=== PATIENT | male | born 1950 | race Caucasian/White ===

== ENCOUNTER 2023-03-22 14:38 | Emergency (ER) | payer OTHER ==
--- NOTE | 2023-03-22 15:44 | RAD REPORT ---
EXAM DESCRIPTION: Trudy Single View03/22/2023 2:56 pm CLINICAL HISTORY: COUGH COMPARISON: No comparisons TECHNIQUE: Portable AP view of the chest. FINDINGS: The lungs are clear. No pneumothorax or effusion. The cardiomediastinal contours are unre markable. IMPRESSION: No acute cardiopulmonary process.
[2023-03-22 15:50] LABS: Absolute Lymphocytes (CBC) 1.9 K/uL (0.7-4.9); Hematocrit 46.9 % (39.6-49.0); Lymphocytes % 22.3 % (15.3-44.8); MCV 94.7 fL (80-100); MPV 8.8 fL (7.6-11.3); RBC Red Blood Cell Count 4.95 M/uL (4.33-5.43)
[2023-03-22 15:55] LABS: Protime INR 0.98
[2023-03-22 16:09] LABS: Bilirubin Direct 0.1 mg/dL (0-0.2); Bilirubin Indirect, Calculated 0.4 mg/dL (0.2-0.8); Bilirubin Total 0.5 mg/dL (0.2-1.0); Magnesium 2.1 mg/dL (1.6-2.4); Potassium 4.1 mEq/L (3.5-5.1); Protein, Total 7.6 g/dL (6.4-8.2); Troponin High Sensitivity 16.7 pg/mL (<58.9)
--- NOTE | 2023-03-22 17:18 | ER ---
Nurse's Notes [facility] Name: James Bailey Age: 73 yrs Sex: Male : 1950 Arrival Date: 03/22/2023 Time: 14:38 Bed 18 Private MD: Diagnosis: Essential (primary) hypertension;Bradycardia, unspecified Presentation: 03/22 15:25 Chief complaint: Patient states: High BP at providers office today, was being seen for ph swelling on R neck, after high BP reading was instructed to come to ED, pt reports hx of HTN but has not taken medication for many years. Denies dizziness , headache or blurred vision. Coronavirus screen: Vaccine status: Patient reports being unvaccinated. Ebola Screen: No symptoms or risks identified at this time. Initial Sepsis Screen: Does the patient meet any 2 criteria? No. Patient's initial sepsis screen is negative. Does the patient have a suspected source of infection? No. Patient's initial sepsis screen is negative. Risk Assessment: Do you want to hurt yourself or someone else? Patient reports no desire to harm self or others. Onset of symptoms was March 22, 2023. 15:25 Method Of Arrival: Ambulatory ph 15:25 Acuity: GLENN 2 ph Triage Assessment: 17:20 General: Appears in no apparent distress. comfortable, Behavior is calm, cooperative, nj1 appropriate for age. 17:20 Pain: Denies pain. nj1 Historical: - Allergies: 15:28 No Known Allergies; ph - PMHx: 15:28 Hypertensive disorder; ph - Immunization history:: Adult Immunizations unknown. - Social history:: Smoking status: Patient denies any tobacco usage or history of. Screenin:20 [facility] ED Fall Risk Assessment (Adult) History of falling in the last 3 months, nj1 including since admission No falls in past 3 months (0 pts) Confusion or Disorientation No (0 pts) Intoxicated or Sedated No (0 pts) Impaired Gait No (0 pts) Mobility Assist Device Used No (0 pt) Altered Elimination No (0 pt) Score/Fall Risk Level 0 - 2 = Low Risk Oriented to surroundings, Maintained a safe environment, Hourly rounding (assess needs \T\ fall precautionary measures) done. 17:20 Abuse screen: Denies threats or abuse. Denies injuries from another. Nutritional nj1 screening: No deficits noted. Tuberculosis screening: No symptoms or risk factors identified. Assessment: 16:48 Reassessment: Patient appears in no apparent distress at this time. Patient and/or ss family updated on plan of care and expected duration. Pain level reassessed. Patient is alert, oriented x 3, equal unlabored respirations, skin warm/dry/pink. 18:30 Reassessment: Patient appears in no apparent distress at this time. Patient and/or nj1 family updated on plan of care and expected duration. Pain level reassessed. Patient is alert, oriented x 3, equal unlabored respirations, skin warm/dry/pink. Vital Signs: 15:25 BP 196 / 102; Pulse 54; Resp 18; Temp 98.2; Pulse Ox 100% on R/A; Weight 104.33 kg; ph Height 5 ft. 8 in. ; 15:51 BP 202 / 96; Pulse 56; Resp 17; Temp 97.6; Pulse Ox 98% on R/A; rs5 16:45 BP 191 / 90; Pulse 49; Resp 18; Pulse Ox 95% on R/A; ss 17:57 BP 183 / 74; Pulse 55; Resp 13; Pulse Ox 96% on R/A; ss 18:30 BP 187 / 86; Pulse 55; Resp 18; Pulse Ox 95% ; nj1 15:25 Body Mass Index 34.97 (104.33 kg, 172.72 cm) ph ED Course: 14:40 Patient arrived in ED. kj1 14:46 Anibal Adams MD is Attending Physician. [facility] 14:58 XRAY Chest (1 view) In Process Unspecified. EDMS 15:28 Triage completed. ph 15:28 Arm band placed on Patient placed in an exam room, Patient notified of wait time. ph 15:45 Inserted saline lock: 20 gauge in left antecubital area, using aseptic technique. Blood rs5 collected. 15:46 Basic Metabolic Panel Sent. rs5 15:46 CBC with Diff Sent. rs5 15:46 LFT's Sent. rs5 15:46 Magnesium Sent. rs5 15:46 NT PRO-BNP Sent. rs5 15:46 PT-INR Sent. rs5 15:46 Troponin HS Sent. rs5 16:03 Roxana Raza, SHANE is Primary Nurse. 17:17 Darrell Garcia MD is Referral Physician. allyson 17:20 Patient has correct armband on for positive identification. Bed in low position. Call nj1 light in reach. 18:30 No provider procedures requiring assistance completed. nj1 18:30 IV discontinued, intact, bleeding controlled. nj1 Administered Medications: 17:17 Drug: Norvasc PO 10 mg Route: PO; ss 17:58 Follow up: Response: No adverse reaction ss Medication: 18:40 VIS not applicable for this client. nj1 Outcome: 17:17 Discharge ordered by . [facility] 18:40 Discharged to home ambulatory. nj1 18:40 Condition: stable 18:40 Discharge instructions given to patient, Instructed on discharge instructions, follow up and referral plans. medication usage, Demonstrated understanding of instructions, follow-up care, medications, Prescriptions given X 1. 18:58 Patient left the ED. nj1 Signatures: Dispatcher [employer] EDMS Anibal Adams MD MD cha Blanchard, Shelby, RN RN Basilia Mendez RN RN Adams, Shelia kj1 Wes Roe rs5 Carolin Montes RN RN nj1
--- NOTE | 2023-03-22 17:18 | EDPHYS ---
Physician Documentation [facility] Name: James Bailey Age: 73 yrs Sex: Male : 1950 Arrival Date: 03/22/2023 Time: 14:38 Bed 18 Private MD: ED Physician Anibal Adams HPI: 03/22 17:12 This 73 yrs old Male presents to ER via Ambulatory with complaints of High allyson Blood Pressure. 17:12 The patient has elevated blood pressure and discovered this at home, with a home allyson device. Onset: The symptoms/episode began/occurred 2 day(s) ago. Modifying factors: The symptoms are aggravated by activity, The symptoms are alleviated by remaining still. Associated signs and symptoms: The patient has no apparent associated signs or symptoms. Severity of symptoms: At its worst the blood pressure was moderate, in the emergency department the blood pressure is unchanged. The patient has experienced similar episodes in the past, multiple times. Historical: - Allergies: 15:28 No Known Allergies; ph - PMHx: 15:28 Hypertensive disorder; ph - Immunization history:: Adult Immunizations unknown. - Social history:: Smoking status: Patient denies any tobacco usage or history of. ROS: 17:14 Constitutional: Negative for fever, chills, and weight loss, Eyes: Negative for injury, allyson pain, redness, and discharge, ENT: Negative for injury, pain, and discharge, Neck: Negative for injury, pain, and swelling, Cardiovascular: Negative for chest pain, palpitations, and edema, Respiratory: Negative for shortness of breath, cough, wheezing, and pleuritic chest pain, Abdomen/GI: Negative for abdominal pain, nausea, vomiting, diarrhea, and constipation, Back: Negative for injury and pain, : Negative for injury, bleeding, discharge, and swelling, MS/Extremity: Negative for injury and deformity, Skin: Negative for injury, rash, and discoloration, Neuro: Negative for headache, weakness, numbness, tingling, and seizure, Psych: Negative for depression, anxiety, suicide ideation, homicidal ideation, and hallucinations, Allergy/Immunology: Negative for hives, rash, and allergies, Endocrine: Negative for neck swelling, polydipsia, polyuria, polyphagia, and marked weight changes, Hematologic/Lymphatic: Negative for swollen nodes, abnormal bleeding, and unusual bruising. Exam: 17:14 Constitutional: This is a well developed, well nourished patient who is awake, alert, allyson and in no acute distress. Head/Face: Normocephalic, atraumatic. Eyes: Pupils equal round and reactive to light, extra-ocular motions intact. Lids and lashes normal. Conjunctiva and sclera are non-icteric and not injected. Cornea within normal limits. Periorbital areas with no swelling, redness, or edema. ENT: Nares patent. No nasal discharge, no septal abnormalities noted. Tympanic membranes are normal and external auditory canals are clear. Oropharynx with no redness, swelling, or masses, exudates, or evidence of obstruction, uvula midline. Mucous membranes moist. Neck: Trachea midline, no thyromegaly or masses palpated, and no cervical lymphadenopathy. Supple, full range of motion without nuchal rigidity, or vertebral point tenderness. No Meningismus. Chest/axilla: Normal chest wall appearance and motion. Nontender with no deformity. No lesions are appreciated. Cardiovascular: Regular rate and rhythm with a normal S1 and S2. No gallops, murmurs, or rubs. Normal PMI, no JVD. No pulse deficits. Respiratory: Lungs have equal breath sounds bilaterally, clear to auscultation and percussion. No rales, rhonchi or wheezes noted. No increased work of breathing, no retractions or nasal flaring. Abdomen/GI: Soft, non-tender, with normal bowel sounds. No distension or tympany. No guarding or rebound. No evidence of tenderness throughout. Back: No spinal tenderness. No costovertebral tenderness. Full range of motion. Male : Normal genitalia with no discharge or lesions. Skin: Warm, dry with normal turgor. Normal color with no rashes, no lesions, and no evidence of cellulitis. MS/ Extremity: Pulses equal, no cyanosis. Neurovascular intact. Full, normal range of motion. Neuro: Awake and alert, GCS 15, oriented to person, place, time, and situation. Cranial nerves II-XII grossly intact. Motor strength 5/5 in all extremities. Sensory grossly intact. Cerebellar exam normal. Normal gait. Psych: Awake, alert, with orientation to person, place and time. Behavior, mood, and affect are within normal limits. 17:14 ECG was reviewed by the Attending Physician. 17:14 Musculoskeletal/extremity: DVT Exam: No signs of deep vein thrombosis. no pain, no swelling, no tenderness, negative Homans' sign noted on exam, no appreciated bluish discoloration, no erythema, no increased warmth. Vital Signs: 15:25 BP 196 / 102; Pulse 54; Resp 18; Temp 98.2; Pulse Ox 100% on R/A; Weight 104.33 kg; ph Height 5 ft. 8 in. ; 15:51 BP 202 / 96; Pulse 56; Resp 17; Temp 97.6; Pulse Ox 98% on R/A; rs5 16:45 BP 191 / 90; Pulse 49; Resp 18; Pulse Ox 95% on R/A; ss 17:57 BP 183 / 74; Pulse 55; Resp 13; Pulse Ox 96% on R/A; ss 18:30 BP 187 / 86; Pulse 55; Resp 18; Pulse Ox 95% ; nj1 15:25 Body Mass Index 34.97 (104.33 kg, 172.72 cm) ph MDM: 14:46 Patient medically screened. [facility] 17:16 Differential diagnosis: hypertensive crisis, Malignant HTN. Data reviewed: vital signs, [facility] nurses notes, lab test result(s), EKG, radiologic studies, plain films. Consideration of Admission/Observation Escalation of care including admission/observation considered. I considered the following discharge prescriptions or medication management in the emergency department Medications were administered in the Emergency Department. See MAR. Independent interpretation of the following test(s) in the Emergency Department EKG: See my EKG interpretation above. Test considered but Not performed: CT: no ct chest. Care significantly affected by the following chronic conditions: Hypertension. 03/22 14:47 Order name: Basic Metabolic Panel; Complete Time: 17: [facility] 03/22 14:47 Order name: CBC with Diff; Complete Time: 17: [facility] 03/22 14:47 Order name: LFT's; Complete Time: 17: [facility] 03/22 14:47 Order name: Magnesium; Complete Time: 17: [facility] 03/22 14:47 Order name: NT PRO-BNP; Complete Time: 17: [facility] 03/22 14:47 Order name: PT-INR; Complete Time: 17: [facility] 03/22 14:47 Order name: Troponin HS; Complete Time: 17: [facility] 03/22 14:47 Order name: XRAY Chest (1 view); Complete Time: 17:05 [facility] 03/22 14:47 Order name: EKG; Complete Time: 14:48 [facility] 03/22 14:47 Order name: Cardiac monitoring; Complete Time: 16:04 [facility] 03/22 14:47 Order name: EKG - Nurse/Tech; Complete Time: 16:03 [facility] 03/22 14:47 Order name: IV Saline Lock; Complete Time: 15:46 [facility] 03/22 14:47 Order name: Labs collected and sent; Complete Time: 15:46 [facility] 03/22 14:47 Order name: O2 Per Protocol; Complete Time: 16:04 [facility] 03/22 14:47 Order name: O2 Sat Monitoring; Complete Time: 16:04 [facility] EC:14 Rate is 50 beats/min. Rhythm is regular. QRS [place] is Normal. [place] interval is normal. QRS allyson interval is normal. QT interval is normal. No Q waves. T waves are Normal. No ST changes noted. Clinical impression: Sinus bradycardia and No evidence of ischemia. Interpreted by me. Reviewed by me. Administered Medications: 17:17 Drug: Norvasc PO 10 mg Route: PO; ss 17:58 Follow up: Response: No adverse reaction ss Disposition Summary: 03/22/23 17:17 Discharge Ordered Location: Home allyson Problem: new allyson Symptoms: have improved allyson Condition: Stable allyson Diagnosis - Essential (primary) hypertension allyson - Bradycardia, unspecified allyson Followup: allyson - With: Private Physician - When: 2 - 3 days - Reason: Recheck today's complaints, Continuance of care, Re-evaluation by your physician Followup: allyson - With: Darrell Garcia MD - When: - Reason: Recheck today's complaints, Re-evaluation by your physician Discharge Instructions: - Discharge Summary Sheet allyson - Bradycardia, Adult allyson - Hypertension, Adult allyson - Hypertension, Adult, [id number] allyson - Aspirin and Your Heart allyson - Managing Your Hypertension allyson Forms: - Medication Reconciliation Form allyson - Thank You Letter allyson - Antibiotic Education allyson - Prescription Opioid Use allyson Prescriptions: - Lotrel 5-10 mg Oral capsule - take 1 capsule by ORAL route once; 30 capsule; Refills: 0, Product Selection allyson Permitted Signatures: Dispatcher [employer] Anibal Prakash MD MD cha Blanchard, Shelby, RN RN ss Mendez, Basilia, RN RN ph
[2023-03-22] MEDS ORDERED: AMLODIPINE 10 MG TAB ONE (17:25)
[2023-03-22 19:14] VITALS: TEMP 97.6
[2023-03-22 19:20] VITALS: BP 187/86; O2SAT 95
--- NOTE | 2023-03-23 17:42 | EKG ---
Test Date: 2023-03-22 Test Time: 15:59:57 Dietist: HIPOLITO MEASUREMENT RESULTS: Intervals: Rate: 50 MD: 134 QRSD: 88 QT: 434 QTc: 395 [place]: P: 39 MD: 134 QRS: 43 T: 101 INTERPRETIVE STATEMENTS: Sinus bradycardia Nonspecific T wave abnormality Abnormal ECG Compared to ECG 04/07/2016 15:45:47 T-wave abnormality now present Sinus rhythm no longer present Electronically Signed On 03-23-23 17:39:35 CDT by Darrell Garcia
== END 2023-03-22 18:58 | disposition home or self-care (01) ==
LOC: ER 14:38
DX: I10 Essential (primary) hypertension (principal); R00.1 Bradycardia, unspecified
CPT/HCPCS: 36415; 71045; 80048; 80076; 83735; 83880; 84484; 85025; 85610; 93005

== ENCOUNTER 2024-01-22 13:54 | Emergency (ER) | payer OTHER ==
[2024-01-22 14:56] LABS: Absolute Basophils 0.1 K/uL (0-0.5); Absolute Eosinophils 0.1 K/uL (0-0.5); Absolute Lymphocytes (CBC) 1.4 K/uL (0.7-4.9); Absolute Monocytes 0.7 K/uL (0.1-1.3); Absolute Neutrophil 6.2 K/uL (1.8-8.0); Basophils % 0.7 % (0-1.3); Eosinophils % 0.9 % (0-4.4); Hematocrit 42.1 % (39.6-49.0); Hemoglobin 13.9 g/dL (13.6-17.9); Lymphocytes % 16.2 % (15.3-44.8); MCH 31.6 pg (27.0-35.0); MCHC 32.9 g/dL (32.0-36.0); MCV 95.9 fL (80-100); MPV 9.1 fL (7.6-11.3); Monocytes % 8.4 % (3.3-12.3); Neutrophils % 73.8 % (41.7-73.7); Platelets 170 thou/uL (152-406); RBC Red Blood Cell Count 4.39 M/uL (4.33-5.43); Red Cell Distribution Width 12.7 % (12.1-15.2)
[2024-01-22 15:03] LABS: PT Prothrombin Time 11.6 SECONDS (9.5-12.5); PTT, Activated Partial Thromb 37.1 SECONDS (24.3-36.9); Protime INR 1.06
[2024-01-22 15:18] LABS: ALT/SGPT 24 U/L (16-61); AST/SGOT 21 U/L (15-37); Albumin/Globulin Ratio 1.1 (1.1-1.8); Alkaline Phosphatase 90 U/L (45-117); Anion Gap 9.7 mEq/L (5.0-15.0); BUN Blood Urea Nitrogen 20 mg/dL (7-18); Bicarbonate 27 mEq/L (21-32); Bilirubin Direct 0.2 mg/dL (0-0.2); Bilirubin Indirect, Calculated 0.5 mg/dL (0.2-0.8); Bilirubin Total 0.7 mg/dL (0.2-1.0); Globulin 3.8 g/dL (2.3-3.5); Glomerular Filtration Rate 48 ml/min (=/>90); Glucose Level 97 mg/dL (74-106); Potassium 3.7 mEq/L (3.5-5.1); Protein, Total 7.8 g/dL (6.4-8.2); Sodium Level 136 mEq/L (136-145)
[2024-01-22 15:22] LABS: Specific Gravity 1.012 (1.005-1.030); Urine Bilirubin NEGATIVE (Negative); Urine Blood Negative (Negative); Urine Clarity Clear (Clear); Urine Color Light-Yellow (Yellow); Urine Glucose NEGATIVE (Negative); Urine Ketones NEGATIVE (Negative); Urine Microscopic Reflex YN NO UMIC; Urine Nitrite NEGATIVE (Negative); Urine Protein NEGATIVE (Negative); Urine Urobilinogen Normal (Normal)
[2024-01-22 15:32] LABS: Barbiturates NEGATIVE (NEGATIVE); Benzodiazepines NEGATIVE (NEGATIVE); Cocaine NEGATIVE (NEGATIVE); METHAMPHETAM NEGATIVE (NEGATIVE); Methadone NEGATIVE (NEGATIVE); Opiates NEGATIVE (NEGATIVE); Phencyclidine NEGATIVE (NEGATIVE); THC Cannibis POSITIVE (NEGATIVE)
--- NOTE | 2024-01-22 18:40 | EDPHYS ---
Physician Documentation [facility] Name: James Bailey Age: 74 yrs Sex: Male : 1950 Arrival Date: 01/22/2024 Time: 13:54 Bed 17 Private MD: ED Physician Placido Long HPI: 01/21 15:51 This 74 yrs old Male presents to ER via Ambulatory with complaints of Sent By marly ARAUJO Suicidal Ideation. 15:51 The patient presents to the emergency department with depression, suicide ideation, but rn the patient has no formulated plan. Onset: The symptoms/episode began/occurred at an unknown time. Severity of symptoms: At their worst the symptoms were mild in the emergency department the symptoms are unchanged. The patient has not experienced similar symptoms in the past. The patient has been recently seen by a physician:. Patient reports longstanding depression, states has had suicidal thoughts in the past, has not really changed recently, but denies plan or true intent to hurt himself. States he is [employer] and does not want to go to [facility]. Patient saw Dr. Garcia today and told him these thoughts, who sent him here. Patient states these thoughts have been longstanding but has never acted on them and states he never will. Patient states [place] a gun [place] ". Patient believes he needs may be depression medication or psychiatric appointment but does not feel like he will go home and hurt himself today.. Historical: - Allergies: 14:18 No Known Allergies; rs5 - PMHx: 14:18 Hypertensive disorder; rs5 - PSHx: 14:18 None; rs5 - Immunization history:: Adult Immunizations up to date. - Infectious Disease History:: Denies. - Social history:: Smoking status: Patient denies any tobacco usage or history of. - Family history:: not pertinent. - Hospitalizations: : No recent hospitalization is reported. ROS: 15:51 Constitutional: Negative for fever, chills, and weight loss, Cardiovascular: Negative rn for chest pain, palpitations, and edema, Respiratory: Negative for shortness of breath, cough, wheezing, and pleuritic chest pain, Abdomen/GI: Negative for abdominal pain, nausea, vomiting, diarrhea, and constipation, MS/Extremity: Negative for injury and deformity, Skin: Negative for injury, rash, and discoloration, Neuro: Negative for headache, weakness, numbness, tingling, and seizure, Exam: 15:19 ECG was reviewed by the Attending Physician. rn 15:51 Constitutional: This is a well developed, well nourished patient who is awake, alert, rn and in no acute distress. Cardiovascular: Regular rate and rhythm. No pulse deficits. Respiratory: No increased work of breathing, no retractions or nasal flaring. Neuro: Awake and alert, GCS 15, oriented to person, place, time, and situation Psych: Awake, alert, pleasant conversation, denies plan for suicide. Vital Signs: 13:54 BP 147 / 93; Pulse 78; Resp 18; Pulse Ox 99% on R/A; rs5 18:53 BP 141 / 90; Pulse 72; Resp 18; Pulse Ox 99% on R/A; rs5 MDM: 14:03 Patient medically screened. rn 18:38 Differential diagnosis: depression. Data reviewed: vital signs, nurses notes, lab test rn result(s), EKG, and as a result, I will discharge patient. Counseling: I had a detailed discussion with the patient and/or guardian regarding the historical points, exam findings, and any diagnostic results supporting the discharge/admit diagnosis, lab results, the need for outpatient follow up, to return to the emergency department if symptoms worsen or persist or if there are any questions or concerns that arise at home. ED course: Patient evaluated by [facility] mental Health professional, they state ok to discharge, they believe that outpatient treatment is ok for him. Patient without plan, and does not want to hurt himself, states needs therapy and/or medication. Patient comfortable with this plan. Asked him to return if anything worsens. . 01/21 14:03 Order name: Acetaminophen; Complete Time: 15:39 rn 01/21 14:03 Order name: Basic Metabolic Panel; Complete Time: 15:39 rn 01/21 14:03 Order name: CBC with Diff; Complete Time: 15:39 rn 01/21 14:03 Order name: ETOH Level; Complete Time: 15:39 rn 01/21 14:03 Order name: Hepatic Function; Complete Time: 15:39 rn 01/21 14:03 Order name: PT-INR; Complete Time: 15:39 rn 01/21 14:03 Order name: Ptt, Activated; Complete Time: 15:39 rn 01/21 14:03 Order name: Salicylate; Complete Time: 15:39 rn 01/21 14:03 Order name: Urinalysis w/ reflexes; Complete Time: 15:39 rn 01/21 14:03 Order name: Urine Drug Screen; Complete Time: 15:39 rn 01/21 14:03 Order name: EKG - Nurse/Tech; Complete Time: 15:11 rn 01/21 14:03 Order name: IV Saline Lock; Complete Time: 15:11 rn 01/21 14:03 Order name: Labs collected and sent; Complete Time: 15:11 rn 01/21 14:03 Order name: Suicide Precautions; Complete Time: 15:11 rn 01/21 14:03 Order name: Suicide Screening ([place]); Complete Time: 15:11 rn EC:19 Rate is 50 beats/min. Rhythm is regular. QRS [place] is Normal. [place] interval is normal. QRS rn interval is normal. QT interval is normal. No Q waves. T waves are Normal. No ST changes noted. Clinical impression: Sinus bradycardia. Interpreted by me. Reviewed by me. Administered Medications: No medications were administered Disposition Summary: 01/22/24 18:40 Discharge Ordered Notes: Location: Home rn Problem: chronic rn Symptoms: have improved rn Condition: Stable rn Diagnosis - Suicidal ideations rn Followup: rn - With: Private Physician - When: As needed - Reason: Recheck today's complaints, Re-evaluation by your physician Discharge Instructions: - Discharge Summary Sheet rn - Suicidal Feelings: How to Help Yourself rn - Stress, Adult rn - Managing Depression, Adult rn Forms: - Medication Reconciliation Form rn - Antibiotic furniture finisher helper - Prescription Opioid Use rn - Patient Portal Instructions rn - Leadership Thank You Letter rn Signatures: Dispatcher [employer] Placido Rubio MD MD rn Sotelo, Ricky RN RN rs5 Corrections: (The following items were deleted from the chart) 15:58 15:51 Constitutional: This is a well developed, well nourished patient who is awake, rn alert, and in no acute distress. Cardiovascular: Regular rate and rhythm. No pulse deficits. Respiratory: No increased work of breathing, no retractions or nasal flaring. Neuro: Awake and alert, GCS 15, oriented to person, place, time, and situation rn
--- NOTE | 2024-01-22 18:40 | ER ---
Nurse's Notes [facility] Name: James Bailey Age: 74 yrs Sex: Male : 1950 Arrival Date: 01/22/2024 Time: 13:54 Bed 17 Private MD: Diagnosis: Suicidal ideations Presentation: 01/21 13:54 Acuity: GLENN 2 rs5 13:54 Method Of Arrival: Ambulatory rs5 13:54 Chief complaint: Patient states: "I've been having financial difficulties for the past rs5 few months and lately I've started feeling a bit suicidal.". Coronavirus screen: At this time, the client does not indicate any symptoms associated with coronavirus-19. Ebola Screen: No symptoms or risks identified at this time. Initial Sepsis Screen: Does the patient meet any 2 criteria? No. Patient's initial sepsis screen is negative. Does the patient have a suspected source of infection? No. Patient's initial sepsis screen is negative. Risk Assessment: Do you want to hurt yourself or someone else? Patient reports desire/thoughts of hurting themselves or someone else. Provider notified. Onset of symptoms was January 22, 2024. Historical: - Allergies: 14:18 No Known Allergies; rs5 - PMHx: 14:18 Hypertensive disorder; rs5 - PSHx: 14:18 None; rs5 - Immunization history:: Adult Immunizations up to date. - Infectious Disease History:: Denies. - Social history:: Smoking status: Patient denies any tobacco usage or history of. - Family history:: not pertinent. - Hospitalizations: : No recent hospitalization is reported. Screenin:25 [facility] ED Fall Risk Assessment (Adult) History of falling in the last 3 months, ph including since admission No falls in past 3 months (0 pts) Confusion or Disorientation No (0 pts) Intoxicated or Sedated No (0 pts) Impaired Gait No (0 pts) Mobility Assist Device Used No (0 pt) Altered Elimination No (0 pt) Score/Fall Risk Level 0 - 2 = Low Risk Oriented to surroundings, Maintained a safe environment, Hourly rounding (assess needs \\T\\ fall precautionary measures) done. Abuse screen: Denies threats or abuse. Denies injuries from another. Nutritional screening: No deficits noted. Tuberculosis screening: No symptoms or risk factors identified. Assessment: 14:00 General: Appears in no apparent distress. comfortable, well groomed, Behavior is calm, ph cooperative, appropriate for age. Pain: Denies pain. Neuro: Level of Consciousness is awake, alert, obeys commands, Oriented to person, place, time, situation. Cardiovascular: Capillary refill < 3 seconds in bilateral fingers Patient's skin is warm and dry. Respiratory: Airway is patent Respiratory effort is even, unlabored. Derm: Skin is pink, warm \\T\\ dry. 15:05 Reassessment: Patient and/or family updated on plan of care and expected duration. Pain rs5 level reassessed. Patient is alert, oriented x 3, equal unlabored respirations, skin warm/dry/pink. Patient states feeling better. Patient states symptoms have improved. 16:11 Reassessment: No changes from previously documented assessment. rs5 17:09 Reassessment: [facility] at bedside. rs5 18:20 Reassessment: Patient and/or family updated on plan of care and expected duration. Pain rs5 level reassessed. Patient is alert, oriented x 3, equal unlabored respirations, skin warm/dry/pink. General: Behavior is calm, cooperative. 18:52 Reassessment: No changes from previously documented assessment. rs5 Psych: 13:55 [place] Suicide Severity Screening: In the past month, have you wished you were ph or wished you could go to sleep and not wake up? Patient responds "yes." "In the past month, have you actually had any thoughts of killing yourself?" Patient responds "yes." "In your lifetime, have you ever done anything, started to do anything, or prepared to do anything to end your life?" Patient responds "no.". Subjective: Patient's mood is sad, Delusions are denied, Hallucinations are denied. Objective: Patient is cooperative, Speech is normal, Affect is appropriate. Interventions: Removed personal items and placed in bag. Patient placed in hospital gown. Urine collected and sent for urine drug test. Safety Checks: Personal items have been removed. Door is open. Pt denies substance abuse. Commitment: Patient will be a voluntary commitment. Vital Signs: 13:54 BP 147 / 93; Pulse 78; Resp 18; Pulse Ox 99% on R/A; rs5 18:53 BP 141 / 90; Pulse 72; Resp 18; Pulse Ox 99% on R/A; rs5 ED Course: 13:54 Arm band placed on Patient placed in an exam room, on a stretcher. rs5 13:58 Patient arrived in ED. mg5 14:03 Placido Long MD is Attending Physician. rn 15:14 Triage completed. rs5 15:16 Wes Thrasher, RN is Primary Nurse. rs5 15:58 contacted [facility] to have a screener evaluate pt. bd 16:25 No provider procedures requiring assistance completed. ph 16:27 Patient has correct armband on for positive identification. Placed in gown. Bed in low ph position. Call light in reach. 19:00 IV discontinued, intact, bleeding controlled, No redness/swelling at site. Pressure rs5 dressing applied. Administered Medications: No medications were administered Medication: 16:25 VIS not applicable for this client. ph Outcome: 18:40 Discharge ordered by MD. rn 19:06 Patient left the ED. rs5 19:07 Discharged to home ambulatory, rs5 19:07 Condition: stable 19:07 Discharge instructions given to patient, family, Instructed on discharge instructions, follow up and referral plans. Demonstrated understanding of instructions, follow-up care, Signatures: Mindy Angel bd Placido Long MD MD rn Hall, Patricia, RN RN Wes Thrasher RN RN rs5 Megan Cuadra mg5 Corrections: (The following items were deleted from the chart) 16:18 14:18 Chief complaint: Patient states: "I've been having financial difficulties for the rs5 past few months and lately I've started feeling a bit suicidal." rs5 16:18 14:18 Coronavirus screen: At this time, the client does not indicate any symptoms rs5 associated with coronavirus-19. rs5 16:18 14:18 Ebola Screen: No symptoms or risks identified at this time. rs5 rs5 16:18 14:18 Initial Sepsis Screen: Does the patient meet any 2 criteria? No. Patient's rs5 initial sepsis screen is negative. Does the patient have a suspected source of infection? No. Patient's initial sepsis screen is negative. rs5 16:18 14:18 Risk Assessment: Do you want to hurt yourself or someone else? Patient reports rs5 desire/thoughts of hurting themselves or someone else. Provider notified. rs5 16:18 15:11 Method Of Arrival: Ambulatory rs5 rs5 16:18 15:11 BP 147 / 93; Pulse 78bpm; Resp 18bpm; Pulse Ox 99% RA; rs5 rs5 15:11 Acuity: GLENN 3 rs5 rs5 14:18 Onset of symptoms was January 22, 2024 rs5 rs5 16: 15:23 Arm band placed on Patient placed in an exam room, on a stretcher, ph rs5
[2024-01-22 19:56] VITALS: BP 141/90; O2SAT 99
== END 2024-01-22 19:06 | disposition home or self-care (01) ==
LOC: ER 13:54
DX: R45.851 Suicidal ideations (principal); I10 Essential (primary) hypertension
CPT/HCPCS: 36415; 80048; 80076; 80143; 80179; 80307; 81003; 82077; 85025; 85610; 85730; 93005; 99284